=== PATIENT | male | born 2000 | race Caucasian/White ===

== ENCOUNTER 2025-03-14 15:44 | Emergency (ER) | payer BC, SELFPAY ==
[2025-03-14 15:50] VITALS: BP 124/75
[2025-03-14 16:07] LABS: Hematocrit 44.2 % (39.0-52.0); Hemoglobin 15.3 g/dL (13.0-18.0); Mean Corp Hgb Conc. 34.6 g/dL (33.0-37.0); Mean Corpuscular Volume 82.8 fL (80.0-94.0); Nucleated Red Blood Cells % 0 % (-); Platelet Count 272 10^3/uL (130-400); Red Cell Dist. Width 13.0 % (11.5-14.5)
[2025-03-14 16:28] LABS: ALT (SGPT) 71 U/L (0-50); AST (SGOT) 33 U/L (17-59); Albumin 5.2 g/dl (3.5-5.0); Alkaline Phosphatase 53 U/L (38-126); Blood Urea Nitrogen 13 mg/dl (9-20); Calcium 10.1 mg/dl (8.4-10.2); Carbon Dioxide 29 mmol/L (22-30); Chloride 104 mmol/L (98-107); Glucose 92 mg/dl (70-99); Lipase 115 U/L (23-300); Potassium 4.2 mmol/L (3.5-5.1); Sodium 139 mmol/L (135-145); Total Protein 8.6 g/dl (6.3-8.2); eGFR > 60.00
--- NOTE | 2025-03-14 17:26 | ED.GENMED ---
History of Present Illness
<Alejandro Koch, DO - Last Filed: 03/14/25 17:28>
General
Chief Complaint: Abdominal Pain
Time Seen by Provider: 03/14/25 17:03
<Leoncio Thompson MD, Resident - Last Filed: 03/14/25 20:39>
General
Source: patient and family
Exam Limitations: none
History of Present Illness
History of Present Illness:
This is a 24-year-old male with history of Crohn's disease presenting in the emergency department with complaints of abdominal abdominal pain that has been going on for last 2 weeks. He denies any fevers or chills. He also admits to have some
constipation for the last few weeks. His last flareup was more than 5 years ago. He was previously following up with pediatric stevedoring superintendent at [facility] however since 2019 he did not see any GI given that his colon was in remission. He is
currently not using any medications. Denies any recent changes in medical history.
Past History
<Alejandro Koch, DO - Last Filed: 03/14/25 17:28>
Social History
Tobacco: Non-smoker
<Leoncio Thompson MD, Resident - Last Filed: 03/14/25 20:39>
Past History
ED Past Medical History: Other (Crohn's disease)
ED Past Surgical History: Other (Procedure for feeding tube at the age of 8. Feeding tube removed at the age of 41)
Social History
Alcohol: None
Drug: None
Personal: Single
Living: with family
Family History
Family History: Other (Noncontributory)
Review of Systems
<Leoncio Thompson MD, Resident - Last Filed: 03/14/25 20:39>
Review of Systems
Constitutional: Denies fever or chills
Respiratory: Denies cough
Cardiac: Denies chest pain
ABD/GI: Reports abdominal pain and constipated; Denies nausea or vomiting
: Denies dysuria
Musculoskeletal: Denies joint pain
Neurological: Denies dizzy
Endocrine: Denies polyuria
Phy Exam
<Leoncio Thompson MD, Resident - Last Filed: 03/14/25 20:39>
General Physical Exam
General Presentation: well appearing
General age: appears stated age
General Skin: warm
General Habitus: normal
General Mental: alert
General Hydration: appears well hydrated
Cardiovascular Exam
Cardiovascular Exam: regular rate/rhythm and no murmur
Pulmonary Exam
Pulmonary Exam: lungs clear and no respiratory distress
Gastrointestinal Exam
Gastrointestinal Exam: normal bowel sounds, non tender, non distended, guarding and no masses
Musculoskeletal Exam
Musculoskeletal Exam: full ROM
Course
<Alejandro Koch, DO - Last Filed: 03/14/25 17:28>
Orders/Labs/Results
Orders:
Orders
03/14/25 15:59
Complete Blood Count/With Diff Urgent
Comprehensive Metabolic Panel Urgent
Lipase Urgent
03/14/25 17:26
CT Abd/pelvis W Iv Cont Urgent
Comment:
Reason For Exam: Abdominal pain with hx of crohns
Abnormal Lab Results
03/14/25
15:59
Absolute Monos (auto) 0.7 H 10^3/uL
(0.1-0.6)
Lymphocytes % 19.8 L %
(20.5-51.1)
ALT 71 H U/L
(0-50)
Total Protein 8.6 H g/dl
(6.3-8.2)
Albumin 5.2 H g/dl
(3.5-5.0)
03/14/25 15:59
03/14/25 15:59
Vital Signs
Initial and Last Documented VS:
Initial Vital Signs
Temp Pulse Resp BP Pulse Ox
97.9 F 70 16 124/75 97
03/14/25 15:50 03/14/25 15:50 03/14/25 15:50 03/14/25 15:50 03/14/25 15:50
Last Documented Vital Signs
Temp Pulse Resp BP Pulse Ox
97.9 F 71 16 118/81 99
03/14/25 15:50 03/14/25 17:36 03/14/25 17:36 03/14/25 17:36 03/14/25 17:36
<Leoncio Thompson MD, Resident - Last Filed: 03/14/25 20:39>
Orders/Labs/Results
Orders:
Orders
03/14/25 15:59
Complete Blood Count/With Diff Urgent
Comprehensive Metabolic Panel Urgent
Lipase Urgent
03/14/25 17:26
CT Abd/pelvis W Iv Cont Urgent
Comment:
Reason For Exam: Abdominal pain with hx of crohns
Abnormal Lab Results
03/14/25
15:59
Absolute Monos (auto) 0.7 H 10^3/uL
(0.1-0.6)
Lymphocytes % 19.8 L %
(20.5-51.1)
ALT 71 H U/L
(0-50)
Total Protein 8.6 H g/dl
(6.3-8.2)
Albumin 5.2 H g/dl
(3.5-5.0)
03/14/25 15:59
03/14/25 15:59
Vital Signs
Initial and Last Documented VS:
Initial Vital Signs
Temp Pulse Resp BP Pulse Ox
97.9 F 70 16 124/75 97
03/14/25 15:50 03/14/25 15:50 03/14/25 15:50 03/14/25 15:50 03/14/25 15:50
Last Documented Vital Signs
Temp Pulse Resp BP Pulse Ox
97.9 F 71 16 118/81 99
03/14/25 15:50 03/14/25 17:36 03/14/25 17:36 03/14/25 17:36 03/14/25 17:36
<Leoncio Thompson MD, Resident - Last Filed: 03/14/25 20:39>
MDM/Problems Addressed
Differential Diagnosis Includes:
Crohn's flareup vs constipation vs unlikely perforated
MDM/Problems Addressed:
CBC within normal limits. CMP with mild elevation of ALT to 71. Lipase within normal limits
Patient reports type I constipation on [facility] stool chart
Will get a CAT scan with IV contrast for further evaluation
update: CT with Mucosal enhancement of the terminal ileum, possibly reflecting a mild inflammatory ileitis in the setting of Crohn's disease.
Case discussed with GI. Dr. Kee. No indication for emergent treatment. Patient's information forwarded to him for expedited outpatient appointment.
Patient and his mother updated. Shared decision was made for discharge home. Return precautions given. They agree with the plan. Patient is stable for discharge
<Alejandro Koch, DO - Last Filed: 03/14/25 17:28>
*Pulse Oximetry
SaO2: 97
Oxygen Mode of Delivery: Room air
<Leoncio Thompson MD, Resident - Last Filed: 03/14/25 20:39>
*Pulse Oximetry
Patient hypoxic: no
*Critical Care Note
Total Time (30-74mins, 75-104mins- exclusive of procedures): Not Applicable
ED Attending Note
<Alejandro Koch, DO - Last Filed: 03/14/25 17:28>
ED Attending Note
Patient seen and examined by attending physician: Yes
I performed a history and physical exam of patient and discussed management with resident, I reviewed resident's note and agree with documented findings and plan of care.: Yes
ED Attending Note:
I have seen and evaluated the patient with a [id number] encounter. I have spoken to the resident and involved in the medical history, the physical exam, medical decision making.
Evaluation and management service: agree unless noted differently below.
Results interpretation: agree unless noted differently below.
Focused HPI: 24-year-old male presenting with 2 weeks of vague abdominal pain. Although patient believes it could be constipation, he has a history of Crohn's disease. It is well-controlled and he has not had a flareup in many years. He used to
follow-up with a pediatric stevedoring superintendent but he is looking for an adult stevedoring superintendent at the moment. He is not on any preventative medicine as he states that he is well-controlled Crohn's
Physical exam: Generalized abdominal tenderness. Mild left abdominal tenderness. No rebound
Medical Decision Making: Will obtain CT to rule out Crohn's disease versus alternative diagnosis such as constipation
-
Portions of this chart may have been created with voice recognition software.� Occasional wrong word or��sound alike� substitutions may have occurred due to the inherent limitations of voice recognition software.
Discharge Plan
Departure
Patient Disposition: Home (Routine Discharge)
Date of Disposition: 03/14/25
Time of Disposition: 20:38
Patient with high blood pressure during this ER visit?: No
Condition: Good
Discharge Problem:
Ileitis
Instructions: Crohn disease in adults
Prescriptions:
No Action
somatropin 5 MG/1.5 ML cartridge
1.3 ml SQ HS
albuterol sulfate 2.5 MG/3 ML solution for nebulization
2.5 mg inhalation R [id number] PRN (Reason: seasonal allergies)
montelukast 10 MG tablet
10 mg PO PRN PRN (Reason: seasonal allergies)
Patient Comments:
seasonal allergies
Referrals:
Mendez Kee MD [Active, Gastroenterology] - Follow up in 1 week
UNKNOWN - PT DOES,NOT KNOW [Unknown Provider]
Activity Restrictions/Additional Instructions:
You were seen in the [facility] emergency department with concerns of abdominal pain. While you were in the emergency department we performed blood work including complete blood count which was normal. Complete metabolic panel which
showed mild elevation of one of the liver enzyme ALT to 71. Lipase was within normal limits. CT scan of show abdomen pelvis with IV contrast showed Mucosal enhancement of the terminal ileum, possibly reflecting a mild inflammatory ileitis in the
setting of Crohn's disease. We encourage that you follow-up with outpatient GI for further evaluation/recommendation. Please return to the emergency department if you develop any new or worsening of the current symptoms. Additional information
regarding Crohn's disease is also added with this discharge paperwork. [facility] office will call you for outpatient appointment. Office information attached with the paperwork.
Interventions
Interventions:
*Risk Screen - Suicide Last Done: 03/14/25 15:51
*General Assessment Last Done: 03/14/25 17:36
*Neglect/Abuse Screening Last Done: 03/14/25 15:51
*ED- Fall Risk Assessment Last Done: 03/14/25 17:36
*ED COVID-19 Vaccine History Last Done: 03/14/25 17:36
LY-Xizbpj-Hajhgrpzms Assessment Last Done: 03/14/25 17:36
Discharge Date and Time
Print Language: AFGHAN
[2025-03-14 17:36] VITALS: BP 118/81; BMI 25.5
== END 2025-03-14 21:00 | disposition home or self-care (01) ==
LOC: EMR 15:44
PROVIDERS: Emergency Medicine; EMERGENCY PHYSICIAN Student in an Organized Health Care Education/Training Program; FAMILY PHYSICIAN Physician Assistant
DX: K52.9 Noninfective gastroenteritis and colitis, unspecified (principal)
CPT/HCPCS: 99284; 74177; 80053; 83690; 85025; Q9967

== ENCOUNTER → 2025-03-23 14:24 | Outpatient (REF) | payer BC, SELFPAY | LOC: REG 14:24 | PROVIDERS: ATTENDING PHYSICIAN Internal Medicine Hematology & Oncology; FAMILY PHYSICIAN Physician Assistant | DX: D68.00 Von Willebrand disease, unspecified (principal) | CPT/HCPCS: 36415 ==

== ENCOUNTER → 2025-03-31 14:44 | Outpatient (REF) | payer BC, SELFPAY ==
[2025-03-31 15:50] LABS: Hematocrit 48.1 % (39.0-52.0); Hemoglobin 15.8 g/dL (13.0-18.0); Mean Corp Hgb Conc. 32.8 g/dL (33.0-37.0); Mean Corpuscular Volume 83.4 fL (80.0-94.0); Nucleated Red Blood Cells % 0 % (-); Platelet Count 273 10^3/uL (130-400); Red Cell Dist. Width 13.3 % (11.5-14.5)
[2025-03-31 16:04] LABS: INR 0.93; PT 12.9 Sec (11.4-14.6)
[2025-03-31 16:05] LABS: APTT 30.1 Sec (23.4-35.0)
== END ==
LOC: REG 14:44
PROVIDERS: ATTENDING PHYSICIAN Internal Medicine Hematology & Oncology; FAMILY PHYSICIAN Physician Assistant
DX: D68.00 Von Willebrand disease, unspecified (principal)
CPT/HCPCS: 36415; 85025; 85240; 85245; 85246; 85247; 85610; 85730

== ENCOUNTER → 2025-04-14 15:28 | Outpatient (REF) | payer BC, SELFPAY | LOC: CLAB 15:28 | PROVIDERS: ATTENDING PHYSICIAN Otolaryngology | DX: J35.1 Hypertrophy of tonsils (principal) | CPT/HCPCS: 88304 ==